=== PATIENT | male | born 1935 | race Hispanic/Latino ===

== ENCOUNTER 2017-06-08 20:49 | Emergency (ER) | payer MEDICARE, BC ==
[2017-06-08 20:49] VITALS: BMI 22.3
[2017-06-08 20:58] VITALS: BP 180/78; PULSE 82; RESP 20; TEMP 98.4; O2SAT 95
[2017-06-08 21:48] LABS: HEMOGLOBIN 16.1 g/dL (14.0-18.0); MEAN CELL VOLUME 83.2 fl (80.0-105.0); MEAN CORPUSCULAR HEMOGLOBIN 29.7 pg (25.0-35.0); MEAN CORPUSCULAR HGB CONC 35.6 g/dl (31.0-37.0); MEAN PLATELET VOLUME 10.3 fl (7.0-11.0); RBC 5.43 10^6/uL (3.5-6.1); RED CELL DISTRIBUTION WIDTH 13.9 % (11.5-14.5); WHITE BLOOD COUNT 6.8 10^3/ul (4.5-11.0)
[2017-06-08 21:51] LABS: ALB/GLOB RATIO 1.4 (1.1-1.8); ALBUMIN 4.6 g/dL (3.0-4.8); ALT/SGPT 50 U/L (7-56); AST/SGOT 41 U/L (15-59); BLOOD UREA NITROGEN 21 mg/dL (7-21); CALCIUM 9.6 mg/dL (8.4-10.5); GFR AFRICAN-AMERICAN > 60; GFR NON-AFRICAN AMERICAN > 60
--- NOTE | 2017-06-08 23:10 | ED PDOC ---
Arrival/HPI <Alirio Martin - Last Filed: 06/08/17 23:55> - History of Present Illness Time/Duration: < week Symptom Onset: Gradual Symptom Course: Worsening Quality: Stabbing <Jazmin Eduardo - Last Filed: 06/08/17 23:57> - General Chief Complaint: Trauma Time Seen by Provider: 06/08/17 21:02 - History of Present Illness Narrative History of Present Illness (Text): 06/08/17 23:07 82 y/o male with past medical history of DM, HTN, myasthenia gravis presents for left sided chest pain after experiencing a fall 2 days ago. Patient states that he had a mechanical fall 2 days ago and hit the side of a table on his left side of his chest/LUQ abdomen. Patient states that he has 10/10 sharp pain which makes it hard for him to take a deep breath. Pain is located in left lower chest/LUQ and wraps around to back. Patient took Aspirin for the pain without much relief. Patient denies having any N/V/D/C, SOB. 06/08/17 23:10 (Jazmin Eduardo) Past Medical History - Provider Review Nursing Documentation Reviewed: Yes - Travel History Have you recently traveled outside [place] w/in the past 3 mons?: No - Cardiac Hx Pacemaker: No - Pulmonary Hx Respiratory Disorders: Yes Hx Chronic Obstructive Pulmonary Disease (COPD): Yes Hx Emphysema: Yes - Neurological Hx Paralysis: (MG) - Hematological/Oncological Hx Blood Transfusions: No Hx Blood Transfusion Reaction: No - Musculoskeletal/Rheumatological Hx Musculoskeletal Disorders: Yes - Gastrointestinal Hx Gastritis: (GERD) - Genitourinary/Gynecological Hx Prostate Cancer: Yes - Psychiatric Hx Emotional Abuse: No Hx Physical Abuse: No Hx Substance Use: No - Anesthesia Hx Anesthesia Reactions: Yes (HIVES) Hx Malignant Hyperthermia: No - Suicidal Assessment Feels Threatened In Home Enviroment: No <Jazmin Eduardo - Last Filed: 06/08/17 23:57> Family/Social History - Physician Review Nursing Documentation Reviewed: Yes Family/Social History: Unknown Family HX Smoking Status: Former Smoker Hx Alcohol Use: No Hx Substance Use: No Hx Substance Use Treatment: No <Jazmin Eduardo - Last Filed: 06/08/17 23:57> Allergies/Home Meds <Alirio Martin - Last Filed: 06/08/17 23:55> <Amn Aleshaa - Last Filed: 06/08/17 23:57> Allergies/Adverse Reactions: Allergies orange juice Allergy (Verified 06/08/17 20:57) RASH Home Medications: Home Meds Medication Instructions Recorded Confirmed Unobtainable 06/08/17 06/08/17 Review of Systems - Physician Review All systems were reviewed & negative as marked: Yes - Review of Systems Constitutional: Normal. absent: Fatigue, Fevers Eyes: Normal. absent: Vision Changes, Photophobia ENT: Normal. absent: Hearing Changes, Sore Throat, Rhinorrhea Respiratory: Normal. absent: SOB, Cough, Sputum, Wheezing Cardiovascular: Chest Pain. absent: Calf Pain Gastrointestinal: Abdominal Pain. absent: Constipation, Diarrhea, Nausea, Vomiting Genitourinary Male: Normal. absent: Dysuria, Frequency, Hematuria Musculoskeletal: Normal, Back Pain. absent: Arthralgias Skin: Normal. absent: Rash, Pruritis, Skin Lesions Neurological: Normal. absent: Headache, Dizziness, Focal Weakness Endocrine: Normal. absent: Diaphoresis, Polyuria Hemo/Lymphatic: Normal. absent: Adenopathy, Easy Bleeding Psychiatric: Normal. absent: Anxiety, Depression <Alesha,Jazmin - Last Filed: 06/08/17 23:57> Physical Exam Vital Signs Reviewed: Yes Temperature: Afebrile Blood Pressure: Hypertensive Pulse: Regular Respiratory Rate: Normal Appearance: Positive for: Uncomfortable Pain Distress: Moderate Mental Status: Positive for: Alert and Oriented X 3 - Systems Exam Head: Present: Atraumatic, Normocephalic Pupils: Present: PERRL Respiratory/Chest: Present: Clear to Auscultation, Good Air Exchange, Tender to Palpation. No: Respiratory Distress, Accessory Muscle Use, Wheezes, Rales, Rhonchi Cardiovascular: Present: Regular Rate and Rhythm, Normal S1, S2. No: Murmurs Abdomen: Present: Tenderness (LUQ), Normal Bowel Sounds. No: Distention, Peritoneal Signs Lower Extremity: No: Edema, CALF TENDERNESS Neurological: Present: GCS=15, Speech Normal Skin: Present: Warm, Dry, Normal Color. 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 Pt, whose past medical history include diabetes, hypertension, myasthenia graves, presented for left-sided chest pain s/p mechanial fall 2 days prior. States he fell and hit the left sided of his chest against the side of table. Aware and agree with HPI, clinical findings, plan, and management. Plan: -- CT Chest, Abdomen with contrast -- XR Ribs -- Labs -- Toradol -- Reassess and disposition 06/08/17 23:31 The patient is choosing to leave against medical advice. I have personally explained to the patient that choosing to do so may result in permanent bodily harm or . I have discussed at great length that without further evaluation and monitoring there may be unforeseen circumstances and/or deterioration causing permanent bodily harm or as a result of their choice. The patient is alert, oriented, and shows the mental capacity to make clear decisions regarding the patients health care at this time. The patient continues to wish to leave against medical advice. In light of the patients decision to leave against medical advice, patient is aware of the importance to following up as instructed. The patient has been advised that they should return to the emergency room immediately if they change their mind at any time, or if their condition begins to change or worsen in any way. (Alirio Martin) 06/08/17 23:13 82 y/o M presents for left sided chest pain/LUQ abd pain after falling and hitting a table Will check rib and chest xray, CBC, BMP, CT of chest/abd with IV contrast Pt will be given ultracet for pain 06/08/17 23:31 Patient has signed out against medical advice. Patient was explained the risks of leaving without proper workup and management (including unstable vital signs , bleeding). (Jazmin Eduardo) - Lab Interpretations Lab Results: 06/08/17 21:30 06/08/17 21:30 Lab Results 06/08/17 21:30: Sodium 138, Potassium 4.6, Chloride 100, Carbon Dioxide 23, Anion Gap 20, BUN 21, Creatinine 1.1, Est GFR ( Amer) > 60, Est GFR (Non- Af Amer) > 60, Random Glucose 242 H, Calcium 9.6, Total Bilirubin 0.9, AST 41, ALT 50, Alkaline Phosphatase 89, Total Protein 7.8, Albumin 4.6, Globulin 3.2, Albumin/Globulin Ratio 1.4 06/08/17 21:30: WBC 6.8, RBC 5.43, Hgb 16.1, Hct 45.2, MCV 83.2, MCH 29.7, MCHC 35.6, RDW 13.9, Plt Count 203, MPV 10.3 - RAD Interpretation Radiology Orders: 06/08/17 21:13 RIBS LEFT & PA CHEST [RAD] Stat 06/08/17 23:04 CHEST, ABDOMEN WITH CONTRAST [CT] Stat - Medication Orders Current Medication Orders: Discontinued Medications Tramadol/Acetaminophen (Ultracet 37.5/325 Mg) 1 tab PO STAT STA Stop: 06/08/17 23:26 Last Admin: 06/08/17 23:33 Dose: 1 tab - PA / UNDERGRADUATE INTERN / Resident Statement / has reviewed & agrees with the documentation as recorded. / has examined the patient and agrees with the treatment plan. <Alirio Martin - Last Filed: 06/08/17 23:55> Disposition/Present on Arrival - Present on Arrival Any Indicators Present on Arrival: No - Disposition Have Diagnosis and Disposition been Completed?: Yes <Alirio Martin - Last Filed: 06/08/17 23:55> - Present on Arrival Any Indicators Present on Arrival: No History of DVT/PE: No History of Uncontrolled Diabetes: No Urinary Catheter: No History of Decub. Ulcer: No History Surgical Site Infection Following: None - Disposition Have Diagnosis and Disposition been Completed?: Yes Disposition Time: 23:33 Patient Plan: Other <Jazmin Eduardo - Last Filed: 06/08/17 23:57> - Disposition Diagnosis: Chest pain, Abdominal pain Disposition: AGAINST MEDICAL ADVICE Condition: STABLE Discharge Instructions (ExitCare): Chest Pain (ED) Forms: [employer] ([place])
[2017-06-08] MEDS ORDERED: TraMADol/Apap 37.5/325 mg Tab PO STA (23:25)
[2017-06-09] MEDS ORDERED: Iohexol 350 MG/100 ML VIAL ONE (00:21)
--- NOTE | 2017-06-09 07:51 | RAD ---
PROCEDURE: Radiographs of the Chest and Left Ribs. HISTORY: fall COMPARISON: 05/03/2016. TECHNIQUE: Frontal radiograph of the chest and multiple oblique radiographs of the left ribs were obtained. FINDINGS: LEFT RIBS: No fracture or focal lesion visualized. LUNGS: Clear. PLEURA: No pneumothorax or pleural fluid. CARDIOVASCULAR: No radiographic findings to suggest acute or significant cardiovascular disease. OTHER FINDINGS: None. IMPRESSION: Unremarkable radiographs of the chest and left ribs. No left rib fracture. No preliminary report provided by emergency department personnel.
== END 2017-06-08 23:39 | disposition left against medical advice (07) ==
LOC: ED 20:49
DX: R07.9 Chest pain, unspecified (principal); R10.9 Unspecified abdominal pain; I10 Essential (primary) hypertension; E11.9 Type 2 diabetes mellitus without complications; Z87.891 Personal history of nicotine dependence